=== PATIENT | male | born 1985 | race Caucasian/White ===

== ENCOUNTER 2018-12-05 10:43 | Emergency (ER) | payer OTHER ==
[2018-12-05 11:12] VITALS: BP 131/70
[2018-12-05] MEDS ORDERED: DEXAMETHASONE 10 MG/ML VIAL PO STA (11:24)
--- NOTE | 2018-12-05 11:27 | ED Physician Documentation ---
PD HPI URI - Stated complaint Stated Complaint: FEVER/COUGH/CONGESTION - Chief complaint Chief Complaint: Fever - History obtained from History obtained from: Patient - History of Present Illness Timing - onset: How many days ago (3) Timing duration: Days (3) Timing details: Gradual onset, Still present Associated symptoms: Fever, Nasal congestion, Rhinorrhea, Productive cough Contributing factors: Sick contact Improves by: Rest, Medication Similar symptoms before: Has not had sx before Recently seen: Not recently seen - Additional information Additional information: Previously well 33-year-old male has developed cough fever congestion production of yellow phlegm sore throat. Review of Systems Constitutional: reports: Fever, Chills Eyes: denies: Decreased vision Ears: denies: Ear pain Nose: reports: Rhinorrhea / runny nose, Congestion Throat: reports: Sore throat Cardiac: denies: Chest pain / pressure, Palpitations Respiratory: reports: Cough. denies: Dyspnea GI: denies: Vomiting PD PAST MEDICAL HISTORY - Present Medications Home Medications: Ambulatory Orders Medication Instructions Recorded Confirmed Amox/Clav 875/125 [Augmentin] 1 each PO Q12H #20 tablet 12/05/18 Benzonatate [Tessalon Perle] 100 - 200 mg PO TID PRN #30 capsule 12/05/18 - Allergies Allergies/Adverse Reactions: Allergies Allergy/AdvReac Type Severity Reaction Status Date / Time No Known Drug Allergies Allergy Verified 12/05/18 10:52 PD ED PE NORMAL - Vitals Vital signs reviewed: Yes (normal ) - General General: Alert and oriented X 3, No acute distress, Well developed/nourished - HEENT HEENT: Atraumatic, PERRL, EOMI, Other (The right TM is inflame along the umbo and the left is not. The pharynx is with a single tonsilith on the right side as well. ) - Neck Neck: Supple, no meningeal sign, No bony TTP - Cardiac Cardiac: RRR, No murmur - Respiratory Respiratory: No respiratory distress, Clear bilaterally - Abdomen Abdomen: Soft, Non tender - Back Back: No CVA TTP, No spinal TTP - Derm Derm: Normal color, Warm and dry, No rash - Extremities Extremities: No deformity, No edema - Neuro Neuro: Alert and oriented X 3, hide buyer 2-12 intact, No motor deficit, No sensory deficit, Normal speech Eye Opening: Spontaneous Motor: Obeys Commands Verbal: Oriented GCS Score: 15 - Psych Psych: Normal mood, Normal affect Results - Vitals Vitals: Vital Signs - 24 hr 12/05/18 10:50 Temperature 36.5 C Heart Rate 75 Respiratory 14 Rate Blood Pressure 131/70 H O2 Saturation 99 Oxygen O2 Source Room air PD MEDICAL DECISION MAKING - ED course Complexity details: considered differential, d/w patient ED course: 33-year-old active [employer] [place] male with right otitis and a cough productive the sputum is administered dexamethasone 10 mg orally we will place him on some Augmentin. Departure - Departure Disposition: Home, Self Care Clinical Impression: Otitis media Qualifiers: Otitis media type: suppurative Chronicity: acute Laterality: right Recurrence: not specified as recurrent Spontaneous tympanic membrane rupture: without spontaneous rupture Qualified Code(s): H66.001 - Acute suppurative otitis media without spontaneous rupture of ear drum, right ear Condition: Stable Instructions: ED Otitis Media Acute Adult Follow-Up: [facility] [Provider Group] Prescriptions: Amox/Clav 875/125 [Augmentin] 1 each PO Q12H #20 tablet Benzonatate [Tessalon Perle] 100 - 200 mg PO TID PRN #30 capsule PRN Reason: Cough Forms: Activity restrictions
== END 2018-12-05 11:33 | disposition home or self-care (01) ==
LOC: ED 10:43
DX: H66.001 Acute suppurative otitis media without spontaneous rupture of ear drum, right ear (principal)
CPT/HCPCS: 99283